=== PATIENT | female | born 1995 | race American Indian/Alaskan Native ===

== ENCOUNTER 2018-09-24 17:11 | Emergency (ER) | payer OTHER ==
[2018-09-24 17:34] VITALS: BP 118/82
--- NOTE | 2018-09-24 18:32 | Emergency Department Report ---
ED Eye Problem HPI - General Chief complaint: Eye Problems Stated complaint: EYE IRRITATION Time Seen by Provider: 09/24/18 17:30 Source: patient Mode of arrival: Ambulatory Limitations: No Limitations - History of Present Illness Initial comments: Bilateral eye pains chief complaint: eye pain, eye redness -: Sudden, days(s) (3) Onset Description: sudden, awoke with symptoms Location: both eyes Place: home If Injury: none Eye Symptoms: burning, redness, pain, itching, discharge, photophobia Severity: moderate Severity scale (0 -10): 6 If Pain, Quality: sharp, burning Consistency: constant Context: other (Spontaneous) Associated Symptoms: none Treatments Prior to Arrival: none - Related Data Patient Tetanus UTD: Yes Previous Rx's Medication Instructions Recorded Last Taken Type Gentamicin 0.3% Ophth Soln 1 drops OP Q4H #1 bottle 09/24/18 Unknown Rx Ibuprofen [Motrin] 600 mg PO Q8H PRN #20 tablet 09/24/18 Unknown Rx Allergies Allergy/AdvReac Type Severity Reaction Status Date / Time No Known Allergies Allergy Unverified 09/24/18 17:12 ED Review of Systems ROS: Stated complaint: EYE IRRITATION Other details as noted in HPI Comment: All other systems reviewed and negative Constitutional: no symptoms reported, see HPI Eyes: eye pain, eye discharge ENT: as per HPI Respiratory: no symptoms reported Cardiovascular: as per HPI Endocrine: no symptoms reported Gastrointestinal: as per HPI Genitourinary: as per HPI Musculoskeletal: as per HPI Skin: as per HPI Neurological: as per HPI Psychiatric: as per HPI Hematological/Lymphatic: as per HPI ED Past Medical Hx - Past Medical History Previous Medical History?: Yes Hx Hypertension: No Hx CVA: No Hx Heart Attack/AMI: No Hx Congestive Heart Failure: No Hx Diabetes: No Hx Deep Vein Thrombosis: No Hx Pulmonary Embolism: No Hx GERD: No Hx Liver Disease: No Hx Renal Disease: No Hx of Cancer: No Hx Sickle Cell Disease: No Hx Arthritis: No Hx Headaches / Migraines: No Hx Asthma: Yes - Surgical History Past Surgical History?: No - Family History Family history: no significant - Social History Smoking Status: Current Some Day Smoker Substance Use Type: None - Medications Home Medications: Home Medications Medication Instructions Recorded Confirmed Last Taken Type Gentamicin 0.3% Ophth Soln 1 drops OP Q4H #1 bottle 09/24/18 Unknown Rx Ibuprofen [Motrin] 600 mg PO Q8H PRN #20 tablet 09/24/18 Unknown Rx ED Physical Exam - General Limitations: No Limitations General appearance: alert, in no apparent distress - Head Head exam: Present: atraumatic - Eye Eye exam: Present: PERRL, EOMI, other (Bilateral conjunctival erythema with purulent discharge and matting) Pupils: Present: normal accommodation - ENT ENT exam: Present: normal exam - Neck Neck exam: Present: normal inspection - Respiratory Respiratory exam: Present: normal lung sounds bilaterally - Cardiovascular Cardiovascular Exam: Present: regular rate, normal rhythm, normal heart sounds - GI/Abdominal GI/Abdominal exam: Present: soft, normal bowel sounds - Rectal Rectal exam: Present: deferred - Extremities Exam Extremities exam: Present: normal inspection - Back Exam Back exam: Present: normal inspection - Neurological Exam Neurological exam: Present: alert, oriented X3, CN II-XII intact, normal gait, reflexes normal - Skin Skin exam: Present: warm, dry ED Course Vital Signs 09/24/18 17:31 Temperature 98 F Pulse Rate 71 Respiratory 18 Rate Blood Pressure 118/82 O2 Sat by Pulse 99 Oximetry ED Medical Decision Making - Medical Decision Making Patient presented to the ED with c/o acute onset persistent pain with bilaterally erythematous conjunctiva with matting and purulent discharge. Pain in nontraumatic, without vision loss. Vital signs are unremarkable. Patient resting comfortably in the room with family and friends in no acute distress. Will discharge home on antibiotic eye drops, and advised to follow up with PCP in 5-7 days for reevaluation, or return to the ED immediately if symptoms get worse. - Differential Diagnosis Bacterial conjunctivitis, allergic conjunctivitis, viral conjunctivitis, Critical care attestation.: If time is entered above; I have spent that time in minutes in the direct care of this critically ill patient, excluding procedure time. ED Disposition Clinical Impression: Acute conjunctivitis of both eyes Qualifiers: Acute conjunctivitis type: unspecified Qualified Code(s): H10.33 - Unspecified acute conjunctivitis, bilateral Disposition: TO HOME OR SELFCARE Is pt being admited?: No Does the pt Need Aspirin: No Condition: Stable Instructions: Conjunctivitis (ED) Additional Instructions: FOLLOW UP WITH YOUR PRIMARY CARE PHYSICIAN IN 5-7 DAYS FOR REEVALUATION, OR RETURN TO THE ED IMMEDIATELY IF SYMPTOMS GET WORSE. Prescriptions: Gentamicin 0.3% Ophth Soln 1 drops OP Q4H #1 bottle Ibuprofen [Motrin] 600 mg PO Q8H PRN #20 tablet PRN Reason: Pain Referrals: [facility] MD MINNIE [Primary Care Provider] - 3-5 Days Time of Disposition: 18:46 Print Language: BELARUSIAN
== END 2018-09-24 19:05 | disposition home or self-care (01) ==
LOC: ED 17:11
DX: H10.33 Unspecified acute conjunctivitis, bilateral (principal); J45.909 Unspecified asthma, uncomplicated; F17.200 Nicotine dependence, unspecified, uncomplicated
CPT/HCPCS: 99282

== ENCOUNTER 2019-07-21 22:46 | Emergency (ER) | payer OTHER ==
[2019-07-21 23:24] VITALS: BP 120/73
--- NOTE | 2019-07-22 04:34 | Emergency Department Report ---
ED General Adult HPI - General Chief complaint: Upper Respiratory Infection Stated complaint: STD /DIFF BREATHING /ASTHMA Time Seen by Provider: 07/22/19 04:07 Source: patient Mode of arrival: Ambulatory Limitations: No Limitations - History of Present Illness Initial comments: This is a 23-year-old -[place] female that presents to the emergency room with cough, shortness of breath, and vaginal discharge. Past medical history of asthma. 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 Patient states she have not had an inhaler since 2014. Reports cough is worse when at work and when she lay down. Patient also reports vaginal discharge for 1 month. Denies pruritus. States discharge have a foul odor to it. Denies chest pain, palpitations, wheezing, urinary frequency, urgency, and dysuria, pelvic pain, or back pain. Onset/Timin -: days(s) Severity scale (0 -10): 0 Consistency: constant Improves with: none Worsens with: none Associated Symptoms: shortness of breath Treatments Prior to Arrival: none - Related Data Previous Rx's Medication Instructions Recorded Last Taken Type Gentamicin 0.3% Ophth Soln 1 drops OP Q4H #1 bottle 09/24/18 Unknown Rx Ibuprofen [Motrin] 600 mg PO Q8H PRN #20 tablet 09/24/18 Unknown Rx Albuterol INH(or & Nicu Only) 2 puff IH QID PRN #8.5 gram 07/22/19 Unknown Rx [ProAir HFA Inhaler] methylPREDNISolone [Medrol 4MG 4 mg PO DAILY #1 tab.ds.pk 07/22/19 Unknown Rx DOSEPAK (21 tabs)] metroNIDAZOLE [Flagyl TAB] 500 mg PO Q12HR #14 tab 07/22/19 Unknown Rx Allergies Allergy/AdvReac Type Severity Reaction Status Date / Time No Known Allergies Allergy Verified 07/21/19 23:01 ED Review of Systems ROS: Stated complaint: STD /DIFF BREATHING /ASTHMA Other details as noted in HPI Constitutional: denies: chills, fever Respiratory: cough, shortness of breath. denies: wheezing Cardiovascular: denies: chest pain, palpitations Gastrointestinal: denies: abdominal pain, nausea, diarrhea Genitourinary: discharge. denies: urgency, dysuria, frequency, hematuria, abnormal menses, dyspareunia Musculoskeletal: denies: back pain, joint swelling, arthralgia Skin: denies: rash, lesions Neurological: denies: headache, weakness, paresthesias Psychiatric: denies: anxiety, depression ED Past Medical Hx - Past Medical History Previous Medical History?: Yes Hx Hypertension: No Hx CVA: No Hx Heart Attack/AMI: No Hx Congestive Heart Failure: No Hx Diabetes: No Hx Deep Vein Thrombosis: No Hx Pulmonary Embolism: No Hx GERD: No Hx Liver Disease: No Hx Renal Disease: No Hx Sickle Cell Disease: No Hx Arthritis: No Hx Headaches / Migraines: No Hx Asthma: Yes - Surgical History Past Surgical History?: No - Social History Smoking Status: Current Every Day Smoker Substance Use Type: Alcohol - Medications Home Medications: Home Medications Medication Instructions Recorded Confirmed Last Taken Type Gentamicin 0.3% Ophth Soln 1 drops OP Q4H #1 bottle 09/24/18 Unknown Rx Ibuprofen [Motrin] 600 mg PO Q8H PRN #20 tablet 09/24/18 Unknown Rx Albuterol INH(or & Nicu Only) 2 puff IH QID PRN #8.5 gram 07/22/19 Unknown Rx [ProAir HFA Inhaler] methylPREDNISolone [Medrol 4MG 4 mg PO DAILY #1 tab.ds.pk 07/22/19 Unknown Rx DOSEPAK (21 tabs)] metroNIDAZOLE [Flagyl TAB] 500 mg PO Q12HR #14 tab 07/22/19 Unknown Rx ED Physical Exam - General Limitations: No Limitations General appearance: alert, in no apparent distress - ENT ENT exam: Present: mucous membranes moist - Respiratory Respiratory exam: Present: normal lung sounds bilaterally. Absent: respiratory distress, wheezes, rales, rhonchi, stridor, accessory muscle use - Cardiovascular Cardiovascular Exam: Present: regular rate, normal rhythm. Absent: systolic murmur, diastolic murmur, rubs, gallop - GI/Abdominal GI/Abdominal exam: Present: soft, normal bowel sounds. Absent: distended, tenderness, guarding, rebound, rigid, organomegaly - External exam: Present: normal external exam Speculum exam: Present: vaginal discharge (Malodorous frothy yellowish discharge), vaginal bleeding. Absent: cervical discharge, foreign body, tissue, laceration Bi-manual exam: Present: cervical motion tendernes. Absent: adnexal tenderness, adnexal mass, uterine enlargement, uterine tenderness - Extremities Exam Extremities exam: Present: normal inspection - Back Exam Back exam: Absent: CVA tenderness (R), CVA tenderness (L) - Neurological Exam Neurological exam: Present: alert, oriented X3, normal gait - Psychiatric Psychiatric exam: Present: normal affect, normal mood - Skin Skin exam: Present: warm, dry, intact, normal color. Absent: rash ED Course Vital Signs 07/21/19 23:23 Temperature 97.8 F Pulse Rate 94 H Respiratory 18 Rate Blood Pressure 120/73 [Right] O2 Sat by Pulse 96 Oximetry ED Medical Decision Making - Medical Decision Making This is a 23-year-old female presents to the emergency room with vaginal discharge, shortness of breath, and cough. Past medical history of asthma. Vitals are stable. Patient in no acute acute distress. Work-up: Pelvic exam, wet prep, gonorrhea and chlamydia. Wet prep positive for clue cells and trichomonas, negative yeast. Patient unable to provide urinalysis. Acute cervicitis. Empirically treated for gonorrhea chlamydia with Rocephin and azithromycin. Start metronidazole 500 mg p.o. twice daily x7 days. Patient instructed to follow-up in 3 to 5 days for gonorrhea chlamydia pending results. Start inhaler and short course of steroids for acute asthma exacerbation. Referral to a primary care doctor for continued care. Patient given strict return precautions. Patient discharged home stable. Critical care attestation.: If time is entered above; I have spent that time in minutes in the direct care of this critically ill patient, excluding procedure time. ED Disposition Clinical Impression: Vaginal discharge, Cough in adult, Shortness of breath, Acute cervicitis, Bacterial vaginitis, Trichomonal vaginitis Asthma exacerbation Qualifiers: Asthma severity: mild Asthma persistence: intermittent Qualified Code(s): J45.21 - Mild intermittent asthma with (acute) exacerbation Disposition: TO HOME OR SELFCARE Is pt being admited?: No Condition: Stable Instructions: Cervicitis (ED), Bacterial Vaginosis (ED), Asthma (ED) Additional Instructions: It is important to use inhaler or have active albuterol inhaler and avoiding asthma triggers. Complete full course of prednisone steroids and antibiotics as prescribed. Follow up with Primary Care Provider in 24-72 hours. Prescriptions: metroNIDAZOLE [Flagyl TAB] 500 mg PO Q12HR #14 tab methylPREDNISolone [Medrol 4MG DOSEPAK (21 tabs)] 4 mg PO DAILY #1 tab.ds.pk Albuterol INH(or & Nicu Only) [ProAir HFA Inhaler] 2 puff IH QID PRN #8.5 gram PRN Reason: Shortness Of Breath Referrals: YELITZA ELENA MD [Primary Care Provider] - 3-5 Days [facility] [Outside] - 3-5 Days [facility] [Outside] - 3-5 Days Forms: STI Treatment and Prevention Time of Disposition: 05:20
[2019-07-22] MEDS ORDERED: LIDOCAINE-MPF (1%) 10 MG/1 ML VIAL 5 ML INFILTRATI ONE (05:11)
[2019-07-22] MEDS ORDERED: AZITHROMYCIN 250 MG TAB PO ONE (05:11)
== END 2019-07-22 05:40 | disposition home or self-care (01) ==
LOC: ED 22:46
DX: J45.21 Mild intermittent asthma with (acute) exacerbation (principal); A59.01 Trichomonal vulvovaginitis; N72 Inflammatory disease of cervix uteri; F17.200 Nicotine dependence, unspecified, uncomplicated; Z79.899 Other long term (current) drug therapy
CPT/HCPCS: 87210; 87591; 96372; 99283; J0696